=== PATIENT | female | born 1950 | race Caucasian/White ===

== ENCOUNTER 2019-06-04 09:00 | Day surgery (SDC) | payer BC, OTHER ==
[~2019-06-04] VITALS: Ht 170.2 cm; Wt 67.1 kg
[~2019-06-04 09:00] MED LIST: CODCAP25 PO; FERR324T12 PO; LR 1,000 ML IV ONE; PERC7.5T11 PO; SOMA350T PO; XANA0.5T PO; ceFAZolin SOD 2 GM in IV 1 EA IV ONE
[2019-06-04] MEDS ORDERED: dexameTHASONE 4 MG/ML 1ML VIAL (J1100) As Ordered ONE (09:30)
[2019-06-04] MEDS ORDERED: BUPIVACAINE HCL 0.5% 30 ML VIAL As Ordered ONE (09:31)
[2019-06-04] MEDS ORDERED: BACITRACIN PWD 50,000 UNITS VIAL As Ordered ONE (09:31)
[2019-06-04] MEDS ORDERED: LIDOCAINE 2% MDV 20 ML VIAL As Ordered ONE (09:31)
[2019-06-04] MEDS ORDERED: NEOSPORIN GU IRRIG 20 ML VIAL As Ordered ONE (09:31)
[2019-06-04] MEDS ORDERED: MIDAZOLAM INJ 2 MG/2 ML VIAL (J2250) As Ordered ONE ×2 (10:52→12:07)
[2019-06-04] MEDS ORDERED: fentaNYL 100 MCG/2 ML INJECTION (J3010) As Ordered ONE (10:52)
[2019-06-04] MEDS ORDERED: PROPOFOL 200 MG/20 ML VIAL As Ordered ONE ×3 (10:52→11:38)
[2019-06-04] MEDS ORDERED: PHENYLephrine HCL 500 MCG/5 ML (100MCG/ML) SYRINGE (J2370) As Ordered ONE (11:00)
[2019-06-04] MEDS ORDERED: KETAMINE HCL 200 MG/20 ML VIAL As Ordered ONE (12:07)
[2019-06-04] MEDS ORDERED: ONDANSETRON 4MG/2ML VIAL (J2405) As Ordered ONE (12:52)
--- NOTE | 2019-06-04 14:17 | REP ---
RIGHT FOOT, THREE VIEWS: Three views of the right foot are performed. Surgery has been performed today with surgical defects in portions of the phalanges. There is a metallic screw in the first proximal phalanx. There is a metallic pin extending vertically through the phalanges of the 2nd through 4th toes. A metallic screw is seen in the distal aspect of the second and third metatarsals. There is a plate and screws bridging the medial cuneiform and base of first metatarsal. The osseous structures are well aligned. There is mild spurring of the inferior calcaneus as well as the dorsal aspect of the tarsal bones. There is narrowing and sclerosis at the tarsal/metatarsal joints. Electronically Signed by Rico Ries MD 06/04/2019 03:47 P
[2019-06-04] MEDS ORDERED: oxyCODONE 5MG TAB As Ordered ONE (14:18)
[2019-06-04 14:25] VITALS: BP 113/69
[2019-06-04] MEDS ORDERED: fentaNYL 100 MCG/2 ML INJECTION (J3010) IV PRN (14:30)
[2019-06-04] MEDS ORDERED: ONDANSETRON 4MG/2ML VIAL (J2405) IV PRN (14:30)
[2019-06-04] MEDS ORDERED: LR 1,000 ML IV SCH (14:30)
[2019-06-04] MEDS ORDERED: METOCLOPRAMIDE INJ 10MG/2ML VIAL (J2765) IV PRN (14:30)
[2019-06-04] MEDS ORDERED: oxyCODONE 5MG TAB PO PRN (14:30)
--- NOTE | 2019-06-04 19:10 | REP ---
Clinical: Status post bunionectomy. Technique: Intraoperative fluoroscopic imaging using portable C-arm technique. Findings: Evidence for prior bunionectomy involving the second through fourth toes. Satisfactory alignment and postsurgical changes. Total fluoroscopic time 13.0 seconds (0.14 mGy). Impression: Status post bunionectomy. Electronically Signed by Ricky Rodriguez MD 06/04/2019 07:01 P
--- NOTE | 2019-06-05 10:31 | RO ---
DATE OF PROCEDURE: 06/04/2019 PREPROCEDURE DIAGNOSES: Hallux valgus deformity right foot. Long 2nd metatarsal, right foot. Long 3rd metatarsal right foot. Hammertoe deformity digits 2, 3, 4, and 5 right foot. Painful screw 1st metatarsal right foot. POSTPROCEDURE DIAGNOSES: Hallux valgus deformity right foot. Long 2nd metatarsal, right foot. Long 3rd metatarsal right foot. Hammertoe deformity digits 2, 3, 4, and 5 right foot. Painful screw 1st metatarsal right foot. PROCEDURE: 1. Mike bunionectomy with internal screw fixation 3.0 mm x 60 mm x 1 right foot. 2. Shortening 2nd metatarsal osteotomy internal screw fixation 2.4 mm x 12 mm x 1. 3. Shortening 3rd metatarsal osteotomy internal screw fixation 2.4 mm x 12 mm x 1 right foot. 4. Proximal interphalangeal joint fusion with external wire fixation 0.045 x 1 second toe right foot. 5. Proximal interphalangeal joint fusion 3rd toe with external wire fixation 0.045 x 1 3rd toe. 6. Proximal interphalangeal joint fusion 0.045 x 1 4th toe right foot. 7. Proximal interphalangeal joint arthroplasty 5th toe right foot. 8. Extensor capsulotomy 4th metatarsophalangeal joint right foot. 9. Removal of painful screw 1st metatarsal right foot. SURGEON: Dr. Martin Lafleur. ROBOTIC MACHINE OPERATOR: None. ANESTHESIA: Local and regional anesthesia DESCRIPTION OF PROCEDURE: On 06/04/2019 this 69-year-old white female was taken from her hospital room to the operating room and placed on the operating table in the supine position. Following the induction of local and regional anesthesia, the right lower extremity was prepped and draped in the usual aseptic manner. The ankle tourniquet was rapidly inflated over a well-padded site proximal to the medial and lateral malleolus of the right foot and the foot was brought to the operating table. Sterile draping was completed and the following procedure was performed. MIKE BUNIONECTOMY WITH INTERNAL SCREW FIXATION 3.0 MM X 16 MM X 1: Attention was directed to the patient's right foot where there was noted to be a recurrent hallux valgus deformity. At this time, a 5 cm incision was placed over the 1st metatarsophalangeal joint of the right foot. The incision was deepened through the subcutaneous tissues. All coursing venous tributaries were identified, underscored, clamped, cut, ligated and electrocoagulated as necessary. The dissection was then carried down and a linear capsulotomy was performed in the same plane as the original skin incision. The capsule and periosteal structures were incised free in one continuous layer dorsally, medially and laterally thus creating a capsuloperiosteal type envelope. Dissection was then carried down lateral to the 1st metatarsal where the fibular sesamoid was noted to be in lateral position. This was sharply dissected free and the fibular sesamoid was removed. Attention was directed to the proximal phalanx and a distal Mike osteotomy was performed with a wedge noted in the distal medial position. Starting at the base of the proximal phalanx, two parallel cuts were formed creating a 6 mm wedge on the distal and medial sides of the proximal phalanx. This was removed and a 3.0 x 16 mm screw was initially placed into the would. Two smaller screws were tried which gave in adequate fixation. However, the 3.0 x 16 mm screw provide great fixation of the osteotomy. C-arm imagery revealed the reduced hallux valgus interphalangeal deformity with the screw in proper placement. The wound was flushed with copious amounts of dilute bacitracin, neomycin and polymyxin B solution. Attention was directed towards closure. The capsular structures were coapted and maintained using #2-0 Monocryl in a simple interrupted type fashion. Subcutaneous tissues coapted and maintained using #4-0 Monocryl in a simple interrupted type fashion. The skin incision was coapted and maintained using #4-0 Prolene in a simple interrupted and horizontal mattress type fashion. PROXIMAL INTERPHALANGEAL FUSION 2ND TOE, RIGHT FOOT: Attention was directed to the patient's 2nd toe where there was noted to be a hammertoe deformity. At this time, an incision was made from the metatarsophalangeal joint to the proximal interphalangeal joint of the 2nd toe. The incision was deepened through the subcutaneous tissue and all coursing venous tributaries were identified, underscored, clamped, cut, ligated and electrocoagulated as necessary. A transverse tenotomy and capsulotomy was then performed. The tendon complex was then released along the extensor expansion and moya. Medial and lateral and collateral ligaments were sharply dissected free from the proximal phalanx. Utilizing a power saw, an osteotomy was performed at the level of the anatomical neck of the proximal phalanx from the dorsal to planar through and through. Cartilage at the base of the middle phalanx was then osteotomized from dorsal to planar through and through. This was extirpated from the wound. The wound was flushed with copious amounts of dilute bacitracin, neomycin and polymyxin B solution. Fixation was planned after the shortening metatarsal osteotomy was performed. Therefore, the following procedure was performed. SHORTENING 2ND METATARSAL OSTEOTOMY WITH INTERNAL SCREW FIXATION 2ND TOE RIGHT FOOT: Attention was directed to the patient's 2nd metatarsal where an incision was then placed from the base of the 2nd toe to the proximal midshaft of the second metatarsal. The incision was deepened to the subcutaneous tissues and all coursing tributaries were identified, underscored, clamp, cut and ligated and electrocoagulated a necessary. The extensor tendons were then fully reflected a proximal direction and a linear capsulotomy was performed at the 2nd metatarsophalangeal joint which was extended to form a T at the neck of the 2nd metatarsal. The lateral side was contracted and therefore, this was released off the proximal phalangea. A Loly osteotomy was then performed starting at the articular cartilage of the second metatarsal paralleling the planar surface of the foot and the bone was proximally shortened 5 mm and fixated with a 2.4 x 12 mm headed compression screw. Utilizing a bone cutter, the dorsal shelf was then cut and smoothed. The wound was flushed with copious amounts of dilute bacitracin, neomycin and polymyxin B solution. Closure was the obtained with the extensor tendon repaired with a #4-0 Supramid Pineda stitch four-stranded. The capsule of the 2nd metatarsophalangeal joint was repaired with #2-0 Monocryl in a simple interrupted type fashion. K-wire was driven through the middle and distal phalanx of the 2nd toe and retrograded into the proximal phalanx under direct fluoroscopy. The wire was bent and a protective ball was placed at the end of the wire. The skin was coapted and maintained with #4-0 Prolene in a simple interrupted and horizontal mattress type fashion. Attention was then directed to the 3rd toe where the following procedure was performed. PROXIMAL INTERPHALANGEAL JOINT FUSION 3RD TOE RIGHT FOOT: Attention was directed to the patient's 3nd toe of the right foot where there was noted to be a hammertoe deformity. At this time, the procedure performed on the second toe was now performed on the 3rd toe without variation or deletion. The only exception being that of anatomical location. The following procedure was then performed. SHORTENING METATARSAL OSTEOTOMY WITH INTERNAL SCREW FIXATION 3RD METATARSAL RIGHT FOOT: Attention was directed to the patient's 3rd metatarsal where the procedure performed on the second metatarsal was now performed on the 3rd metatarsal without variation or deletion. The only exception being that of anatomical location. Attention was directed to the 4th toe where the following procedure was performed. PROXIMAL INTERPHALANGEAL JOINT FUSION 4TH TOE RIGHT FOOT: Attention was directed to the patient's 4th toe of the right foot where the procedure performed on the second toe was now performed on the 4th toe without variation or deletion. The only exception being that of anatomical location. Attention was then directed to the patient's 5th toe of the right foot where the following procedure was performed. PROXIMAL INTERPHALANGEAL JOINT ARTHROPLASTY 5TH TOE RIGHT FOOT: Attention was directed to the patient's 5th toe where there was noted to be a hammertoe deformity. At this time, the procedure performed on the 2nd tow was now performed on the 5th toe with the following variation. The cartilage was not resected from the base of the middle phalanx and no wire fixation was utilized. The following procedure was then performed. EXTENSOR CAPSULOTOMY 4TH METATARSOPHALANGEAL JOINT, RIGHT FOOT: There was still a dorsal contracture at the 4th metatarsophalangeal joint. Therefore, a stab incision was placed over the metatarsophalangeal joint and a capsulotomy was performed releasing the contracture of the dorsal aspect of the 4th metatarsophalangeal joint. This was repaired with #4-0 Prolene. The following procedure was then performed. REMOVAL OF PAINFUL SCREW 1ST METATARSAL RIGHT FOOT: Attention directed to the patient's screw proximal and medial aspect of the 1st metatarsal where there was noted to be a prominent screw with irritation of the skin. At this time, two transverse semi-elliptical incisions measuring 1 cm in length were placed over the medial aspect. Dissection was carried down to the screw where a fully-threaded screw was removed from the 1st metatarsal. The wound was flushed with copious amounts of dilute bacitracin, neomycin and polymyxin B solution and the skin was coapted and maintained with #4-0 Prolene in a simple interrupted type fashion. Attention was directed towards bandaging where a sterile compression bandage applied consisting of Adaptic, 4 x 4s, 4 x 4 splints, Janiya, Kerlix and Coban. An ankle pneumatic tourniquet was rapidly inflated and instantaneous capillary refill returned to all digits one through five of the patient's right foot. Patient, having apparently tolerated the procedure well, was taken from operating room to the recovery room for further monitoring by the anesthesia department. Postop instructions given upon discharge.
== END 2019-06-04 15:07 | disposition home or self-care (01) ==
LOC: M SDC 09:00
PROVIDERS: ATTEND Podiatrist
DX: M20.11 Hallux valgus (acquired), right foot (principal); M20.41 Other hammer toe(s) (acquired), right foot; M79.671 Pain in right foot; D64.9 Anemia, unspecified; Z79.899 Other long term (current) drug therapy
CPT/HCPCS: 20680; 28270; 28285; 28298; 28308; 73630; 76000; 88300; C1713; J0690; J1100; J2250; J2370; J2405; J3010

== ENCOUNTER → 2019-06-21 | Outpatient (REF) | payer OTHER ==
[~2019-06-21] MED LIST changes: -LR 1,000 ML IV ONE; -ceFAZolin SOD 2 GM in IV 1 EA IV ONE
== END ==
LOC: M LAB REF 16:22
PROVIDERS: ATTEND Podiatrist
DX: L03.031 Cellulitis of right toe (principal); M79.671 Pain in right foot